=== PATIENT | male | born 1965 | race Caucasian/White ===

== ENCOUNTER 2018-02-13 21:37 | Emergency (ER) | payer OTHER, BC, SELFPAY ==
[2018-02-13 21:38] VITALS: BP 144/100; PULSE 97; RESP 16; TEMP 36.7; O2SAT 97; BMI 29.2
[2018-02-13 22:50] VITALS: PULSE 95; RESP 14; TEMP 37.3; O2SAT 96
--- NOTE | 2018-02-13 23:23 | ED.DEP ---
ED Disposition - Plan for ED Patient: Chief Complaint: Head Injury Instructions: ED Laceration Scalp Stitch Or Stap Referrals: [facility] [GROUP OF PHYSICIANS] -
--- NOTE | 2018-02-13 23:26 | ED.VISSUMM ---
- ER Visit Summary Date of Service: 02/13/18 Chief Complaint: Scalp laceration History of Present Illness: The patient is a 53 M with laceration to scalp at work. Patient was hit in the head with a piece of metal. He did not lose consciousness. No vomiting. No amnesia. His tetanus is up-to-date. No other injuries. Physical Examination: Vitals are stable. Patient is afebrile. Alert no acute distress. HEENT exam 2.0 cm laceration right posterior scalp Neck is nontender Lungs are clear and equal bilaterally. Heart is regular rate and rhythm. Abdomen is soft nontender nondistended. Extremities are unremarkable. Skin is warm and dry. No focal neurologic deficit. Remainder of exam is unremarkable. Emergency Department Course and Treatment: Laceration was repaired under sterile conditions. Irrigated with saline. Anesthetized with lidocaine. 3 dayday were placed. Patient tolerated this well. Advised follow up with [facility] care. Advised return to ED if worsening complaints. Disposition: Discharge home Impression: Scalp laceration, laceration repair This note was generated with [employer] dictation software. It may contain incorrect words, spelling, and punctuation that were not noted in review of the chart prior to signing ED Disposition - Plan for ED Patient: Chief Complaint: Head Injury Instructions: ED Laceration Scalp Stitch Or Stap [facility] [[facility]YSIC[facility]ANS] -
--- NOTE | 2018-02-13 23:34 | ED.DCSUM_ITS ---
- ER Visit Summary Date of Service: 02/13/18 Chief Complaint: Scalp laceration History of Present Illness: The patient is a 53 M with laceration to scalp at work. Patient was hit in the head with a piece of metal. He did not lose consciousness. No vomiting. No amnesia. His tetanus is up-to-date. No other injuries. Physical Examination: Vitals are stable. Patient is afebrile. Alert no acute distress. HEENT exam 2.0 cm laceration right posterior scalp Neck is nontender Lungs are clear and equal bilaterally. Heart is regular rate and rhythm. Abdomen is soft nontender nondistended. Extremities are unremarkable. Skin is warm and dry. No focal neurologic deficit. Remainder of exam is unremarkable. Emergency Department Course and Treatment: Laceration was repaired under sterile conditions. Irrigated with saline. Anesthetized with lidocaine. 3 dayday were placed. Patient tolerated this well. Advised follow up with [facility] care. Advised return to ED if worsening complaints. Disposition: Discharge home Impression: Scalp laceration, laceration repair This note was generated with [employer] dictation software. It may contain incorrect words, spelling, and punctuation that were not noted in review of the chart prior to signing ED Disposition - Plan for ED Patient: Chief Complaint: Head Injury Instructions: ED Laceration Scalp Stitch Or Stap [facility] [[facility]] -
[2018-02-13 23:37] VITALS: RESP 18
== END 2018-02-13 23:40 | disposition home or self-care (01) ==
LOC: ED 22:33
PROVIDERS: Emergency Provider Emergency Medicine
DX: S01.01XA Laceration without foreign body of scalp, initial encounter (principal); W22.8XXA Striking against or struck by other objects, initial encounter; Y93.89 Activity, other specified; Y92.89 Other specified places as the place of occurrence of the external cause; Y99.0 Civilian activity done for income or pay
CPT/HCPCS: 12001; 99283